=== PATIENT | female | born 1980 | race Caucasian/White ===

== ENCOUNTER 2017-09-14 19:18 | Inpatient (IN) | payer BC ==
[2017-09-14 20:45] LABS: BHCG - Serum Negative (NEGATIVE); Pregs Control Background? CLEAR/WHITE (CLR/WHITE); Pregs Control Bar Appear? YES (CONTROL BAR)
[2017-09-14 20:51] LABS: Hemoglobin 14.9 g/dL (12.0-16.0); Manual Diff?? YES; Mean Corpuscular HGB CONC 34.4 g/dL (32.0-36.0); Mean Corpuscular Hemoglobin 31.3 pg (27.0-31.0); Mean Corpuscular Volume 90.9 fl (81.0-99.0); Mean Platelet Volume 8.7 fL (7.4-10.4); Platelet Count 148 thou/uL (130-400); RBC Distribution Width 11.5 % (11.5-14.5); Red Blood Cell (RBC) Count 4.75 mill/uL (4.20-5.40); White Blood Cell (WBC) Count 8.9 thou/uL (4.8-10.8)
[2017-09-14 20:52] LABS: Band 19 % (5-11); Lymphocytes 7 % (21-51); MDiff Complete? YES; Monocytes 5 % (0-10); Neutrophil 67 % (42-75); PLT Morphology Comment PLT clumps seen-ADEQ; Reactive Lymphocytes 2 % (0-10)
[2017-09-14 20:55] LABS: ALT (SGPT) 18 U/L (8-55); AST (SGOT) 18 U/L (5-34); Albumin 4.3 g/dL (3.5-5.0); Alkaline Phosphatase 135 U/L (40-150); Anion Gap 16 mmol/L (10-20); BUN (Urea Nitrogen) 10 mg/dL (7.0-18.7); Bilirubin, Total 0.5 mg/dL (0.2-1.2); Calc. Creatinine Clearance 0 mL/min (70-130); Calcium 9.2 mg/dL (7.8-10.44); Carbon Dioxide 21 mmol/L (22-29); Chloride 101 mmol/L (98-107); Estimated GFR-MDRD 73; Globulin 3.6 g/dL (2.4-3.5); Glucose 97 mg/dL (70-105); Protein, Total 7.9 g/dL (6.0-8.3); Sodium 135 mmol/L (136-145)
[2017-09-14 21:08] LABS: Bilirubin Moderate (Negative); Blood, Urine Large (Negative); Clarity Cloudy (Clear); Glucose, Urine (Dipstick) Negative (Negative); Leukocyte Negative (Negative); Nitrite Negative (Negative); Protein, Urine (Dipstick) 100 mg/dL (Neg-Trace)
[2017-09-14 21:09] LABS: Specific Gravity, Urine 1.035 (1.002-1.036)
[2017-09-14 21:10] LABS: RBC/HPF GREATER THAN 50-TNTC HPF (0-3)
[2017-09-14 21:11] LABS: Bacteria/HPF 3+ HPF (None Seen); Other Casts/LPF 0-3 FINELY GRAN LPF (0-3 Hyaline); Squamous Epithelial 21-50 HPF (0-3)
[2017-09-14] MEDS ORDERED: Potassium Chloride 20 MEQ TAB ONE (21:11)
[2017-09-14] MEDS ORDERED: Ondansetron HCl/PF 4 MG/2 ML Vial ONE (21:11)
[2017-09-14] MEDS ORDERED: Morphine 5 MG/ML SYRINGE ONE ×3 (21:11→23:38)
[2017-09-14] MEDS ORDERED: Meropenem 1 GM VIAL ONE (21:11)
[2017-09-14] MEDS ORDERED: Ibuprofen 200 MG TAB ONE ×2 (22:06)
--- NOTE | 2017-09-14 22:17 | RAD ---
AP VIEW CHEST WELL SUPINE AND UPRIGHT VIEWS ABDOMEN 09/14/17 HISTORY: Right upper quadrant pain. History of cirrhosis. PA radiograph of the chest as well as supine and upright views of the abdomen demonstrate the lungs t o be well aerated. No evidence of active intrathoracic disease seen. No evidence of effusions, pneumo shyam or pneumothorax seen. Two views of the abdomen demonstrate air fluid levels seen in the small bowel and colon. This is conc erning for possible bowel obstruction. Gas is seen throughout the small bowel and colon. No evidence of free intraperitoneal air seen. IMPRESSION: Gas and fluid seen in the small bowel and colon. No evidence of significant cut off of gas is seen in the colon. Gas is seen in the ascending, transverse, descending, sigmoid colon and rectum which may suggest more of an ileus rather than bowel obstruction. POS: [facility]
[2017-09-15 01:03] VITALS: BMI 33.7
[2017-09-15 01:14] LABS: Lactic Acid 1.6 mmol/L (0.5-2.2)
[2017-09-15] MEDS ORDERED: Ondansetron HCl/PF 4 MG/2 ML Vial IVP PRN ×2 (01:18→10:14)
[2017-09-15] MEDS: Sodium Chloride 0.9% 1,000 ML IV SCH ×2 (01:58→05:58)
[2017-09-15] MEDS ORDERED: Morphine 4 MG/ML VIAL SLOW IVP SCH (04:45)
[2017-09-15] MEDS ORDERED: MEROPENEM 1 GM/50 ML 1 GM in Premix Bag 1 BAG IVPB SCH (09:00)
[2017-09-15] MEDS: Morphine 4 MG/ML VIAL SLOW IVP PRN ×3 (09:19→23:54)
[2017-09-15 10:09] LABS: ALT (SGPT) 14 U/L (8-55); AST (SGOT) 17 U/L (5-34); Albumin 3.3 g/dL (3.5-5.0); Alkaline Phosphatase 113 U/L (40-150); Anion Gap 6 mmol/L (10-20); BUN (Urea Nitrogen) 5 mg/dL (7.0-18.7); Bilirubin, Total 0.4 mg/dL (0.2-1.2); CRP (Inflammatory) 9.18 mg/dL (= or < 0.5); Calc. Creatinine Clearance 140 mL/min (70-130); Calcium 7.9 mg/dL (7.8-10.44); Carbon Dioxide 24 mmol/L (22-29); Chloride 107 mmol/L (98-107); Estimated GFR-MDRD Greater than 90; Globulin 2.6 g/dL (2.4-3.5); Glucose 85 mg/dL (70-105); Lipase 10 U/L (8-78); Magnesium 1.6 mg/dL (1.6-2.6); Phosphorus 2.3 mg/dL (2.3-4.7); Potassium 3.4 mmol/L (3.5-5.1); Protein, Total 5.9 g/dL (6.0-8.3); Sodium 134 mmol/L (136-145)
[2017-09-15] MEDS ORDERED: traMADol HCl 50 MG TAB PO PRN (10:12)
[2017-09-15] MEDS ORDERED: Calcium Carbonate 500 MG ChewTAB PO PRN (10:14)
[2017-09-15] MEDS ORDERED: Milk Of Magnesia 30 ML UDCUP PO PRN (10:14)
--- NOTE | 2017-09-15 10:26 | HP ---
DATE OF ADMISSION: 09/15/2017 PRIMARY CARE PHYSICIAN: Dr. Chandler Mckenzie. CHIEF COMPLAINT: Abdominal discomfort. HISTORY OF PRESENT ILLNESS: Patient is a 37-year-old female with primary biliary cirrhosis, systemic lupus erythematosus, presented to the emergency room with above complaints. Over the last 2-3 days, patient developed gradual worsening pain over the right upper quadrant that w as different from her chronic pain. The pain was more or less constant, without any aggravating or r elieving factor. It was moderate to severe in intensity. She lost her appetite. No significant mikel sea or vomiting reported. She denies any change in her bowel habits. She normally has semi-formed s tool which were essentially unchanged. No weight loss, sick contacts reported. She had intermittent fever with diaphoresis. No chills reported. Due to worsening abdominal discomfort, she presented t o the emergency room. In the emergency room, initial vital signs showed temperature 99.3, respirations 16, pulse of 122 wit h blood pressure 113/91 with O2 saturation of 97% on room air. KUB showed air fluid levels in the sm all bowel and colon without any free intraperitoneal air. CT scan of the abdomen and pelvis noncontr ast showed mild to moderate and diffuse distention with gas per ER report. Official report pending a t this time. She received a total of 8 mg morphine, 2 liter IV fluid, ibuprofen, meropenem and oral potassium in the emergency room. PAST MEDICAL HISTORY: 1. 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 Henry, GI. 2. Systemic lupus erythematosus. 3. Polyarthralgias/myalgias. 4. Gastroesophageal reflux disease. 5. Hypothyroidism. 6. Chronic pain syndrome. 7. Pseudohypoparathyroidism 8. Osteoporosis. PAST SURGICAL HISTORY: 1. Cholecystectomy. 2. Bilateral knee surgeries. 3. Dilatation and curettage. 4. . 5. Tonsillectomy. 6. Adenoidectomy. 7. Liver biopsy in 2013. 8. ERCP by Dr. Henry in 2015. 9. EGD by Dr. Henry last year. ALLERGIES: No known drug allergies. FAMILY HISTORY: Father with hemochromatosis and Parkinson's disease. Mother with hearing loss and d iabetes. SOCIAL HISTORY: Patient continues to smoke less than half pack a day. Drinks alcohol socially, no d rug use. ALLERGIES: No known drug allergies. CURRENT HOME MEDICATIONS: Per [facility], Wellbutrin 75 mg daily, escitalopram 20 mg daily, Zofran as needed, Protonix 80 mg daily, Phenergan as needed and tramadol as needed. REVIEW OF SYSTEMS: The following complete review of systems was negative, unless otherwise mentioned in the HPI or below: Constitutional: Weight loss or gain, ability to conduct usual activities. Skin: Rash, itching. Eyes: Double vision, pain. ENT/Mouth: Nose bleeding, neck stiffness, pain, tenderness. Cardiovascular: Palpitations, dyspnea on exertion, orthopnea. Respiratory: Shortness of breath, wheezing, cough, hemoptysis, fever or night sweats. Gastrointestinal: Poor appetite, abdominal pain, heartburn, nausea, vomiting, constipation, or diarr hea. Genitourinary: Urgency, frequency, dysuria, nocturia. Musculoskeletal: Pain, swelling. Neurologic/Psychiatric: Anxiety, depression. Allergy/Immunologic: Skin rash, bleeding tendency. PHYSICAL EXAMINATION: VITAL SIGNS: As discussed above. GENERAL: A 37-year-old female in tears. Continues to have abdominal discomfort. HEENT: Head is atraumatic, normocephalic, sclerae are anicteric. Dry mucous membranes. No oral les ion. NECK: Supple, no JVD, no carotid bruit. LUNGS: Clear to auscultation bilaterally, no wheezing, rales or rhonchi. HEART: S1, S2 present. Regular rate and rhythm. No rubs or gallops. ABDOMEN: Soft and diffuse tenderness mainly over the right upper quadrant. No rebound, guarding, no costovertebral angle tenderness. Bowel sounds present, somewhat hyperactive. EXTREMITIES: No edema or calf tenderness. NEUROLOGIC: Grossly nonfocal, moves all four extremities. PSYCHIATRY: Alert, awake, oriented x3. SKIN: Warm and dry. LYMPH NODES: No palpable lymph nodes in the neck. PERIPHERAL VASCULAR: Radial pulses palpable bilaterally. MUSCULOSKELETAL: No joint swelling or tenderness. LABORATORY DATA AND IMAGING DATA: Potassium 3.0. LFTs in normal range. Lipase pending at this time . Urinalysis showed WBC 11-20 with RBC greater than 50, squamous cells with 3+ bacteria. CBC showed WBC 8.9 with 19% bandemia. Lactic acid was 3.0, sodium 135. Blood cultures are negative so far. K UB by my review as discussed above. CT scan of the abdomen and pelvis showed mild to moderately and diffusely distended with gas; with relatively small amount of fluid. IMPRESSION AND PLAN: 1. Sepsis with acute organ dysfunction of unclear etiology. 2. Abdominal discomfort of unclear etiology with ileus on the CT. 3. Hypokalemia. 4. Hypomagnesemia. 5. Suspected urinary tract infection. 6. Lactic acidosis, improved. 7. Obesity with body mass index of 33.8. 8. Normal WBC with 19% bandemia. 9. Systemic lupus erythematosus. 10. 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 11. Gastroesophageal reflux disease. 12. History of pseudohypoparathyroidism and hypothyroidism. 13. Chronic pain syndrome. 14. Dehydration. PLAN: The patient will be monitored on the medical floor. We will replace electrolytes. Continue I V fluids. Clear liquids will be started. Consult GI and General Surgery. Empiric antibiotics. Sto ol workup. Resume selected home medications. We will repeat labs including lipase today. Plan of care was discussed with the patient in detail. She stated understanding. The patient will require 2-3 days for stabilization.
[2017-09-15 10:30] LABS: #Lymphocytes 0.9 thou/uL (1.20-3.40); #Monocytes 0.5 thou/uL (0.11-0.59); #Neutrophils 4.1 thou/uL (1.40-6.50); %Basophils 0.3 % (0.0-1.0); %Eosinophils 0.4 % (0.0-10.0); %Lymphocytes 15.8 % (21.0-51.0); %Monocytes 9.7 % (0.0-10.0); %Neutrophils 73.8 % (42.0-75.0); Hemoglobin 12.4 g/dL (12.0-16.0); Mean Corpuscular HGB CONC 33.9 g/dL (32.0-36.0); Mean Corpuscular Hemoglobin 31.9 pg (27.0-31.0); Mean Corpuscular Volume 94.2 fl (81.0-99.0); Mean Platelet Volume 8.4 fL (7.4-10.4); PLT Morphology Comment Appears Decreased; Platelet Count 114 thou/uL (130-400); RBC Morphology Normal; Red Blood Cell (RBC) Count 3.88 mill/uL (4.20-5.40); White Blood Cell (WBC) Count 5.5 thou/uL (4.8-10.8)
--- NOTE | 2017-09-15 10:44 | CON ---
DATE OF CONSULTATION: 09/15/2017 HISTORY OF PRESENT ILLNESS: A 37-year-old female admitted with kidney infection associated with abdo sarah bloating and pain, mostly back pain, but also pain in her epigastric region. X-rays and CT sca n revealed findings consistent with ileus. PHYSICAL EXAMINATION: VITAL SIGNS: Her blood pressure is 102/70, her pulse is 82, respirations 16. She is afebrile. HEENT: Sclerae are anicteric. Oropharynx clear. NECK: No lymphadenopathy. CHEST: Clear. HEART: Regular rate and rhythm. ABDOMEN: Soft, distended, but she does have bowel sounds. Diffuse abdominal tenderness that is mild without guarding or rebound. Well-healed abdominal incisions. EXTREMITIES: No ischemia or edema to extremities. LABORATORY DATA: White cell count is 8, hemoglobin 14, platelet count is 148,000. She has 19 bands. Sodium 134, potassium 3.4, creatinine 0.68. Liver function tests normal. Lipase normal. Acute ab dominal series overnight on admission reveals gas in the small bowel and colon consistent with ileus. Her urine showed too numerous to count rbc's, 11-20 wbc's, 3+ bacteria, moderate bilirubin, large a mount of blood. ASSESSMENT: Ileus secondary to urinary tract infection. PLAN: Supportive care only. I agree with clear liquids. Continue antibiotics. Unlikely to need an y surgical procedure.
[2017-09-15] MEDS ORDERED: Morphine 4 MG/ML VIAL SLOW IVP PRN (11:15)
[2017-09-15] MEDS ORDERED: Promethazine 25 MG TAB PO PRN (11:16)
--- NOTE | 2017-09-15 11:39 | CT ---
PRELIMINARY REPORT/[facility]/EMERGENTY AFTER-HOURS PROCEDURE CT Abdomen and Pelvis Without Intravenous Contrast EXAM DATE/TIME: Exam ordered 09/15/2017 12:03 AM CLINICAL HISTORY: 37 years old, female; Pain; Abdominal pain; Generalized; Prior surgery; Surgery date: 6+ months; Surgery type: [place]; Patient HX: All over body pain due to lupus, increased abd distention. Hs of cir rhosis due to lupus. Hs of cholecystectomy, 2 c-sections. TECHNIQUE: Axial computed tomography images of the abdomen and pelvis without intravenous contrast. All CT scans at this facility use one or more dose reduction techniques, viz.: automated exposure control; ma/kV adjustment per patient size (including targeted exams where dose is matched to indication; i.e. head) ; or iterative reconstruction technique. Coronal reformatted images were created and reviewed. COMPARISON: No relevant prior studies available. FINDINGS: Lung bases: Unremarkable. No mass. No consolidation. ABDOMEN: Liver: Unremarkable. Gallbladder and bile ducts: Prior cholecystectomy. No ductal dilation. Pancreas: Unremarkable. No ductal dilation. Spleen: Unremarkable. No splenomegaly. Adrenals: Unremarkable. No mass. Kidneys and ureters: Unremarkable. No obstructing stones. No hydronephrosis. Stomach and bowel: The colon is mildly to moderately and diffusely distended with gas and relatively small amount of fluid. Mild gaseous distention of the nondependent portions of the bowel may contribu te to patient discomfort but is not pathologic. No bowel wall thickening or intestinal obstruction. PELVIS: Appendix: Normal appendix. Bladder: Unremarkable. No stones. Reproductive: Uterus and ovaries are unremarkable. ABDOMEN and PELVIS: Intraperitoneal space: Unremarkable. No free air. No significant fluid collection. Bones/joints: No acute fracture. No dislocation. Soft tissues: Unremarkable. Vasculature: Unremarkable. No abdominal aortic aneurysm. Lymph nodes: Unremarkable. No enlarged lymph nodes. IMPRESSION: The colon is mildly to moderately and diffusely distended with gas and a relatively small amount of f luid. Mild gaseous distention of the nondependent portions of the bowel may contribute to patient dis comfort but is not pathologic. Thank you for allowing us to participate in the care of your patient. Dictated and Authenticated by: Maurice Ly MD 09/15/2017 12:25 AM Central Time ([place] & [place]) FINAL REPORT EMERGENCY AFTER HOURS CT ABDOMEN AND PELVIS PERFORMED WITHOUT CONTRAST ENHANCEMENT: Date: 09/14/17 HISTORY: Abdominal pain. COMPARISON: 01/12/16. FINDINGS: The lung bases are clear. The liver, spleen, and pancreas regions are unremarkable. Gallbladder has been removed. Right and left adrenal glands, and right and left kidneys are normal in appearance. There is no signi ficant periaortic or mesenteric adenopathy. There is gaseous distention of the colon. No wall thicken ing is seen. There is fluid within the colon, mainly right colon, which could indicate diarrhea. No s mall bowel obstruction. CT of pelvis was performed without contrast enhancement. Follicles are seen involving the adnexa. No adenopathy, mass, or free fluid. The appendix is normal. IMPRESSION: Mild gaseous distention of the colon without signs of obstruction. This report is in agreement with the preliminary report issued by [facility]. POS: [facility]
[2017-09-15] MEDS: NS 0.9% w/ 20 MEQ KCL 1,000 ML/1,000 ML BAG IV SCH ×3 (11:47→23:55)
[2017-09-15] MEDS: cefTRIAXone\\ROCEPHIN 1 GM in Sodium Chloride 0.9% 100 ML IVPB SCH (11:47)
[2017-09-15] MEDS: metroNIDAZOLE 500 MG in Premix Bag 1 BAG IVPB SCH ×2 (15:11→20:50)
--- NOTE | 2017-09-15 19:41 | CON ---
DATE OF CONSULTATION: 09/15/2017 GI INPATIENT CONSULTATION NOTE REQUESTING PHYSICIAN: Dr. Ventura. REASON FOR CONSULTATION: Abdominal pain and cirrhosis. HISTORY OF PRESENT ILLNESS: Venessa Allan is a 37-year-old woman followed in the GI clinic by my colleague, Dr. Al Henry. She has a history of extensive liver workup in the past performed by him as well as doctors down in [place]. She has had multiple liver biopsies with eventual diagnosis of lupus hepatitis. The patient was evidently on Prograf and steroids for some time, but is not currently on any lupus specific medications or immunosuppressive therapy. She has chronic pain syndrome and some chronic right upper quadrant discomfort which has not really changed recently, but started to act up a bit more and prompted her presentation last night. Upon arrival, she began to experience more generalized abdominal cramping pain and bloating. She denies any urinary symptoms. There has been no vomiting. CT performed on evaluation demonstrated significant air throughout the colon, possibly consistent with ileus. Liver tests are normal and urinalysis came back showing signs of urinary tract infection. She is being treated with antibiotics. She tells me that over the course of today, she has started to feel a lot better. Her chronic right upper quadrant pain continues, but the more generalized abdominal pain and cramping has significantly improved. She has had about 6 bowel movements today, but passing a lot of gas and with each bowel movement, she feels a bit better. REVIEW OF SYSTEMS: Full review of systems including constitutional, head, eyes , ears, nose, throat, GI, , cardiovascular, respiratory, musculoskeletal, and neurologic systems is negative except as noted in the HPI. PAST MEDICAL HISTORY: 1. Lupus hepatitis. 2. Systemic lupus erythematosus. 3. Polyarthralgias/myalgias. 4. Gastroesophageal reflux disease. 5. Hypothyroidism. 6. Chronic pain syndrome. 7. Pseudohypoparathyroidism. 8. Osteoporosis. PAST SURGICAL HISTORY: 1. Cholecystectomy. 2. ERCP with biliary sphincterotomy and stone removal in 2015. 3. Bilateral knee surgeries. 4. Dilation and curettage. 5. . 6. Tonsillectomy. 7. Adenoidectomy. 8. Liver biopsy in 2013. 9. EGD by Dr. Henry last year. ALLERGIES: No known drug allergies. OUTPATIENT MEDICATIONS: Wellbutrin, escitalopram, Zofran, Protonix, Phenergan p.r.n., tramadol p.r.n. INPATIENT MEDICATIONS: Ceftriaxone IV, metronidazole IV, morphine p.r.n., tramadol p.r.n. SOCIAL HISTORY: The patient continues to smoke less than half pack per day. Alcohol use is social. No drug use. FAMILY HISTORY: Father with hemochromatosis and Parkinson's disease. Mother with diabetes. PHYSICAL EXAMINATION: TRIAGE VITAL SIGNS: Temperature 98.3, pulse 90, blood pressure 106/79, 99% oxygen saturation on room air. GENERAL: A 37-year-old woman lying in bed comfortably in no distress, in good spirits. SKIN: No jaundice, no rash visible or palpable. EYES: No scleral icterus. Extraocular movements intact. ENT: Mucous membranes moist, no oral lesions. LYMPH: No submandibular, supraclavicular lymphadenopathy. THYROID: Nontender to palpation. HEART: Regular rate and rhythm. LUNGS: Clear to auscultation bilaterally. ABDOMEN: Bowel sounds present, soft, some diffuse tenderness to palpation, particularly in the right upper quadrant, but no guarding, no rebound tenderness. EXTREMITIES: No peripheral edema. VESSELS: Radial pulses 2+ bilaterally. NEUROLOGICAL: Cranial nerves II-XII intact bilaterally. No focal deficits. LABORATORY STUDIES: UA shows greater than 50 rbc's, 11-20 wbc's. Sodium 134, potassium 3.4, BUN 5, creatinine 0.68. LFTs are all normal with total bilirubin 0.4, alkaline phosphatase 113, AST 17, ALT 14. CRP is elevated to 9.18, albumin is 3.3, lipase is only 10. Serum test is negative. WBC 5.5, hemoglobin 12.4, platelets 114. IMAGING STUDIES: CT of the abdomen and pelvis last night demonstrated unremarkable liver, prior cholecystectomy, no biliary dilation, normal pancreas and spleen. There is mild to moderate diffuse distention of the colon with gas and nondependent portions of the bowel, but no bowel wall thickening or obstruction. Appendix is normal. Bladder is normal. ASSESSMENT AND PLAN: 1. Ileus, appears to be resolving today. This is possibly secondary to her urinary tract infection, which is now being treated. 2. Generalized abdominal pain, secondary to ileus, improving. 3. Chronic right upper quadrant pain, stable. 4. Lupus hepatitis. This was evidently diagnosed on liver biopsy within the past few years down in [place]. Note that she is not on any specific immunosuppressive medications, but her liver tests are all normal. Liver function also appears normal with albumin of 3.3 and platelets 148 on admission. I see no evidence of liver dysfunction or failure. Her hepatitis appears to not be very active at this time. 5. Urinary tract infection. This is being treated with antibiotics. I agree with Dr. Win's assessment. The patient is already feeling quite a bit better, passing a lot of gas and having multiple bowel movements today. Ileus appears to be resolving. She is tolerating a clear liquid diet. I would continue this today, then advance her diet as tolerated tomorrow if she is still feeling better. From a GI perspective, she could be discharged tomorrow if she is able to advance her diet. DAVIS
[2017-09-16 05:37] LABS: #Basophils 0.1 thou/uL (0.0-0.2); #Lymphocytes 1.1 thou/uL (1.20-3.40); #Monocytes 0.5 thou/uL (0.11-0.59); #Neutrophils 2.6 thou/uL (1.40-6.50); %Basophils 1.3 % (0.0-1.0); %Eosinophils 0.4 % (0.0-10.0); %Lymphocytes 25.4 % (21.0-51.0); %Monocytes 11.9 % (0.0-10.0); %Neutrophils 61.1 % (42.0-75.0); Mean Corpuscular HGB CONC 35.1 g/dL (32.0-36.0); Mean Corpuscular Hemoglobin 33.3 pg (27.0-31.0); Mean Corpuscular Volume 94.8 fl (81.0-99.0); Mean Platelet Volume 8.5 fL (7.4-10.4); Platelet Count 131 thou/uL (130-400); Red Blood Cell (RBC) Count 3.89 mill/uL (4.20-5.40); White Blood Cell (WBC) Count 4.3 thou/uL (4.8-10.8)
[2017-09-16] MEDS: metroNIDAZOLE 500 MG in Premix Bag 1 BAG IVPB SCH ×2 (05:39→14:08)
[2017-09-16 06:10] LABS: ALT (SGPT) 18 U/L (8-55); AST (SGOT) 22 U/L (5-34); Albumin 3.4 g/dL (3.5-5.0); Alkaline Phosphatase 120 U/L (40-150); Anion Gap 9 mmol/L (10-20); BUN (Urea Nitrogen) Less than 4 mg/dL (7.0-18.7); Bilirubin, Total 0.5 mg/dL (0.2-1.2); CRP (Inflammatory) 11.22 mg/dL (= or < 0.5); Calc. Creatinine Clearance 142 mL/min (70-130); Calcium 7.9 mg/dL (7.8-10.44); Carbon Dioxide 21 mmol/L (22-29); Chloride 108 mmol/L (98-107); Estimated GFR-MDRD Greater than 90; Globulin 2.8 g/dL (2.4-3.5); Glucose 83 mg/dL (70-105); Magnesium 1.5 mg/dL (1.6-2.6); Phosphorus 2.8 mg/dL (2.3-4.7); Potassium 3.5 mmol/L (3.5-5.1); Protein, Total 6.2 g/dL (6.0-8.3); Sodium 134 mmol/L (136-145)
[2017-09-16] MEDS ORDERED: Magnesium Sulfate 2 GM in Sodium Chloride 0.9% 100 ML IVPB SCH (08:45)
[2017-09-16] MEDS: NS 0.9% w/ 20 MEQ KCL 1,000 ML/1,000 ML BAG IV SCH (08:58)
[2017-09-16] MEDS ORDERED: Saccharomyces boulardii 250 MG CAP PO SCH (09:00)
[2017-09-16] MEDS ORDERED: buPROPion 75 MG TAB PO SCH (09:00)
[2017-09-16] MEDS ORDERED: Escitalopram Oxalate 20 mg Tablet PO SCH (09:00)
[2017-09-16] MEDS ORDERED: Magnesium 2 GM/NS 0.9% 100 ML 2 GM in Premix Bag 1 BAG IVPB SCH (09:00)
[2017-09-16] MEDS: cefTRIAXone\\ROCEPHIN 1 GM in Sodium Chloride 0.9% 100 ML IVPB SCH (11:23)
--- NOTE | 2017-09-16 14:11 | PRG ---
DATE OF SERVICE: 09/16/2017 SUBJECTIVE: Ms. Allan feels better today. She has had a few bowel movements. Her abdominal pain is resolved. OBJECTIVE: VITAL SIGNS: She is afebrile. Vital signs are stable. ABDOMEN: Soft, nontender, and nondistended. ASSESSMENT: Abdominal pain, resolved. No obstruction, no need for surgery. PLAN: To be discharged home today. She will call my office as needed.
--- NOTE | 2017-09-16 15:57 | DIS ---
DATE OF DISCHARGE: 09/16/2017 DISCHARGE DISPOSITION: Home. FOLLOWUP: 1. Follow up with primary care physician, Dr. Chandler Mckenzie, after 1 week. 2. Follow up with Gastroenterology, Dr. Al Henry, in 2 weeks. ALLERGIES: No known drug allergies. DISCHARGE MEDICATIONS: Ciprofloxacin 250 mg twice a day for the next 4 days, Flagyl 500 mg 3 times d aily for the next 4 days. All other home medications were resumed. ALLERGIES: No known drug allergies. The patient was seen and examined on the day of discharge. Denies any new complaints. No chest pain , shortness of breath, palpitations. BRIEF HOSPITAL COURSE: Patient is a 37-year-old white female with primary biliary cirrhosis, systemi c lupus erythematosus, and GERD, who presented to the hospital with abdominal discomfort. Her workup was consistent with sepsis along with ileus on the CT. Please refer to the history and physical yousif ed 09/15/2017 for further details. The patient was admitted to the hospital with the above diagnosis . Her white cell counts were 8.9 with 19% bandemia. She was started on broad-spectrum antibiotics. The patient was evaluated by General Surgery, Dr. Win, and GI, Dr. Bauer. She spontaneously star janet having bowel movement and passing gas. Her symptoms have resolved. The patient has been cleared for discharge by General Surgery. I discussed with Dr. Bauer, who agreed with a short course of IV a ntibiotic. FINAL DIAGNOSES: 1. Sepsis with acute organ dysfunction, suspected secondary to colitis. 2. Suspected ileus. 3. Electrolyte imbalance. The patient had hypokalemia and hypomagnesemia that has been replaced. 4. Suspected urinary tract infection. Urine culture showed 10,000-25,000 mixed skin jose carlos. 5. Lactic acidosis, resolved. 6. Systemic lupus erythematosus. 7. Lupus, hepatitis versus primary biliary cirrhosis. 8. Gastroesophageal reflux disease. 9. Chronic pain syndrome. 10. Dehydration. 11. History of pseudohypoparathyroidism. 12. Hypoparathyroidism, currently on no levothyroxine. 13. Hyponatremia. Plan of care was discussed with the patient in detail. She stated understanding.
[2017-09-16 16:00] VITALS: BP 112/81; TEMP 97.5
== END 2017-09-16 15:46 | disposition home or self-care (01) | DRG 872 ==
LOC: SCSER 19:18 → T4-B 09-15 00:19
PROVIDERS: ADMIT Family Medicine; ATTEND Family Medicine
DX: A41.9 Sepsis, unspecified organism (principal); K56.7 Ileus, unspecified; N39.0 Urinary tract infection, site not specified; E87.2 Acidosis; E87.1 Hypo-osmolality and hyponatremia; R65.20 Severe sepsis without septic shock; E87.6 Hypokalemia; E83.42 Hypomagnesemia; E66.9 Obesity, unspecified; Z68.33 Body mass index [BMI] 33.0-33.9, adult; K21.9 Gastro-esophageal reflux disease without esophagitis; E03.9 Hypothyroidism, unspecified; G89.4 Chronic pain syndrome; E86.0 Dehydration; K74.3 Primary biliary cirrhosis; K52.9 Noninfective gastroenteritis and colitis, unspecified; K75.4 Autoimmune hepatitis; Z79.899 Other long term (current) drug therapy
CPT/HCPCS: 36415; 74022; 74176; 80053; 81003; 81015; 83605; 83690; 83735; 84100; 84703; 85025; 86140; 87040; 87086; J2270; A4216; J0696; J2185; J2405; J3475; J7050

== ENCOUNTER 2018-02-05 10:50 | Outpatient (CLI) | payer BC ==
[2018-02-05 11:27] LABS: #Basophils 0.1 thou/uL (0.0-0.2); #Eosinphils 0.2 thou/uL (0.0-0.7); #Lymphocytes 1.9 thou/uL (1.20-3.40); #Monocytes 0.4 thou/uL (0.11-0.59); %Basophils 1.2 % (0.0-1.0); %Eosinophils 4.2 % (0.0-10.0); %Lymphocytes 41.7 % (21.0-51.0); %Monocytes 8.7 % (0.0-10.0); %Neutrophils 44.2 % (42.0-75.0); Hemoglobin 13.3 g/dL (12.0-16.0); Mean Corpuscular HGB CONC 31.7 g/dL (32.0-36.0); Mean Corpuscular Hemoglobin 29.4 pg (27.0-31.0); Mean Corpuscular Volume 92.7 fL (78.0-98.0); Platelet Count 160 thou/uL (130-400); RBC Distribution Width 12.4 % (11.5-14.5); Red Blood Cell (RBC) Count 4.52 mill/uL (4.20-5.40); White Blood Cell (WBC) Count 4.6 thou/uL (4.8-10.8)
[2018-02-05 11:50] LABS: ALT (SGPT) 17 U/L (8-55); AST (SGOT) 21 U/L (5-34); Albumin 3.9 g/dL (3.5-5.0); Alkaline Phosphatase 172 U/L (40-150); Anion Gap 11 mmol/L (10-20); BUN (Urea Nitrogen) 8 mg/dL (7.0-18.7); Bilirubin, Total 0.6 mg/dL (0.2-1.2); CRP (Inflammatory) Less than 0.50 mg/dL (= or < 0.5); Calc. Creatinine Clearance 0 mL/min (70-130); Calcium 7.8 mg/dL (7.8-10.44); Carbon Dioxide 27 mmol/L (22-29); Chloride 104 mmol/L (98-107); Estimated GFR-MDRD 88; Globulin 2.8 g/dL (2.4-3.5); Glucose 80 mg/dL (70-105); Magnesium 1.9 mg/dL (1.6-2.6); Potassium 3.8 mmol/L (3.5-5.1); Protein, Total 6.7 g/dL (6.0-8.3); Sodium 138 mmol/L (136-145)
--- NOTE | 2018-02-05 12:05 | RAD ---
ABDOMEN TWO VIEWS: History: 37-year-old female with history of lupus erythematosus, nausea, and vomiting for two weeks. FINDINGS: Surgical clips in the right upper quadrant evidence for prior cholecystectomy. No evidence for small bowel obstruction. Gas and fecal material in the colon. No overt calculus. IMPRESSION: Unremarkable abdomen two views. POS: [facility]
[2018-02-05 14:32] LABS: Microalbumin Urine Less than 1.0 mg/dL (0.5-50.0)
== END 2018-02-05 10:51 | disposition home or self-care (01) ==
LOC: SCSRAD 10:50
PROVIDERS: ATTEND Family Medicine
DX: G62.9 Polyneuropathy, unspecified (principal); K73.8 Other chronic hepatitis, not elsewhere classified; R31.29 Other microscopic hematuria; R11.2 Nausea with vomiting, unspecified
CPT/HCPCS: 36415; 74019; 80053; 82043; 82607; 83735; 84443; 85025; 85652; 86140

== ENCOUNTER 2018-05-06 07:55 | Outpatient (CLI) | payer BC ==
--- NOTE | 2018-05-06 14:16 | NM ---
NUCLEAR MEDICINE GASTRIC AMPTYING EXAM: INDICATION: Nausea with vomiting, unspecified. RADIOPHARMACEUTICAL: 2.2 mCi Technetium 99m sulfur colloid within protein-based meal. FINDINGS: Utilizing geometric mean, gastric emptying half-time is approximately 38 minutes. Gastric emptying t david is recorded as 127 minutes. IMPRESSION: Gastric emptying half-time of 38 minutes. POS: [facility]
== END 2018-05-06 07:56 | disposition home or self-care (01) ==
LOC: NM 07:55
PROVIDERS: ATTEND Family Medicine
DX: R11.2 Nausea with vomiting, unspecified (principal)
CPT/HCPCS: 78264; A9541

== ENCOUNTER 2018-06-14 18:54 | Observation (INO) | payer BC ==
[2018-06-14 19:36] LABS: #Basophils 0.1 thou/uL (0.0-0.2); #Eosinphils 0.1 thou/uL (0.0-0.7); #Lymphocytes 3.3 thou/uL (1.20-3.40); #Monocytes 0.5 thou/uL (0.11-0.59); #Neutrophils 4.9 thou/uL (1.40-6.50); %Eosinophils 1.3 % (0.0-10.0); %Lymphocytes 36.8 % (21.0-51.0); %Neutrophils 54.9 % (42.0-75.0); Hemoglobin 14.4 g/dL (12.0-16.0); Mean Corpuscular HGB CONC 35.2 g/dL (32.0-36.0); Mean Platelet Volume 9.5 fL (7.4-10.4); Platelet Count 180 thou/uL (130-400); RBC Distribution Width 12.2 % (11.5-14.5); Red Blood Cell (RBC) Count 4.49 mill/uL (4.20-5.40)
[2018-06-14 19:43] LABS: INR-International Normal Ratio 1.1; PTT 26.4 SEC (22.9-36.1); Prothrombin Time 14.1 SEC (12.0-14.7)
[2018-06-14 19:50] LABS: ALT (SGPT) 14 U/L (8-55); AST (SGOT) 15 U/L (5-34); Acetaminophen Less than 6.0 mcg/mL (10.0-30.0); Albumin 4.1 g/dL (3.5-5.0); Alcohol Less than 10 mg/dL (Less than 10); Alkaline Phosphatase 211 U/L (40-150); Anion Gap 14 mmol/L (10-20); BUN (Urea Nitrogen) 10 mg/dL (7.0-18.7); Bilirubin, Total 0.5 mg/dL (0.2-1.2); CK (CPK) 171 U/L (29-168); Calc. Creatinine Clearance 0 mL/min (70-130); Calcium 6.9 mg/dL (7.8-10.44); Carbon Dioxide 25 mmol/L (22-29); Chloride 103 mmol/L (98-107); Estimated GFR-MDRD 89; Globulin 2.6 g/dL (2.4-3.5); Glucose 85 mg/dL (70-105); Protein, Total 6.7 g/dL (6.0-8.3); Salicylate Less than 8.0 mg/dL (15.0-30.0); Sodium 139 mmol/L (136-145)
--- NOTE | 2018-06-14 19:53 | RAD ---
CHEST ONE VIEW: 06/14/18 at 7:22 p.m. HISTORY: Left sided weakness, facial tingling, cough. FINDINGS: The heart size is normal. The lungs are expanded with focal areas of consolidation, pneumothorax or p leural effusions. IMPRESSION: No radiographic evidence of acute cardiopulmonary process. POS: [facility]
[2018-06-14] MEDS ORDERED: Aspirin 325 MG TAB ONE (20:08)
--- NOTE | 2018-06-14 20:12 | CT ---
CT BRAIN WITHOUT CONTRAST: 06/14/18 HISTORY: Left sided weakness and facial tingling for two days. No evidence of infarct, hemorrhage, midline shift or abnormal extra-axial fluid collections are seen. The ventricular size is normal and the basilar cisterns patent. The bony calvarium is intact. The vi sualized paranasal sinuses and mastoid air cells are well aerated. There is suggestion of cerumen in the external auditory canals bilaterally. IMPRESSION: No CT evidence of acute intracranial process. POS: [facility]
[2018-06-14 21:36] VITALS: BMI 31.6
[2018-06-14 22:04] LABS: Troponin I Less than 0.010 ng/mL (< 0.028)
[2018-06-15 02:58] LABS: Troponin I Less than 0.010 ng/mL (< 0.028)
[2018-06-15] MEDS ORDERED: Senokot S 8.6-50 MG TAB PO PRN (07:29)
[2018-06-15] MEDS ORDERED: Ondansetron PF 4 MG/2 ML Vial IVP PRN (07:29)
[2018-06-15] MEDS ORDERED: Bisacodyl 10 MG SUPP PR PRN (07:29)
[2018-06-15] MEDS ORDERED: Bisacodyl 5 MG TAB PO PRN (07:29)
[2018-06-15] MEDS ORDERED: Calcium Carbonate 500 MG ChewTAB PO PRN (07:29)
[2018-06-15] MEDS ORDERED: Acetaminophen 325 MG TAB PO PRN (07:29)
[2018-06-15] MEDS ORDERED: Aspirin 81 mg Enteric Coated Tablet PO SCH (09:00)
[2018-06-15] MEDS ORDERED: Famotidine/PF 20 mg/2ml Vial SLOW IVP SCH (09:00)
[2018-06-15] MEDS ORDERED: Calcium Gluc 4.6 MEQ/10 ML (100 MG/ML) SLOW IVP ONE (10:00)
[2018-06-15] MEDS ORDERED: Potassium Chloride 20 MEQ TAB PO SCH (10:00)
--- NOTE | 2018-06-15 13:31 | MRI ---
BRAIN MRI NONCONTRAST: Date: 06/15/18 COMPARISON: Head CT previous day. CLINICAL HISTORY: TIA with left-sided weakness. FINDINGS: There is no evidence of acute territorial infarction, intracranial mass effect, midline shift, or sig nificant parenchymal signal abnormality throughout the brain. The visualized skull base flow-voids ar e patent. There is mild scattered paranasal sinus mucosal thickening and there is mild bilateral mast oid fluid. IMPRESSION: 1. There are no acute intracranial abnormalities. 2. Paranasal sinus mucosal thickening and mild bilateral mastoid fluid. Correlate clinically. POS: [facility]
--- NOTE | 2018-06-15 14:20 | ULT ---
CAROTID ULTRASOUND WITH BUTT SCALE AND DOPPLER DUPLEX COLOR FLOW IMAGING SPECTRAL ANALYSIS PERFORMED: DATE: 06/15/18 CLINICAL INDICATION: TIA. 38-year-old female. Left side weakness. Facial tingling. FINDINGS: There is no significant atherosclerotic calcification of the carotid arteries. PEAK SYSTOLIC VELOCITY (CM/S): Right CCA 86 Left CCA 94 Right ICA 82 Left ICA 85 There is antegrade flow within the visualized bilateral vertebral arteries. IMPRESSION: 1. No hemodynamically significant stenosis of the right internal carotid artery. 2. No hemodynamically significant stenosis of the left internal carotid artery. POS: [facility]
--- NOTE | 2018-06-15 15:40 | CON ---
DATE OF CONSULTATION: 06/15/2018 CONSULTING PHYSICIAN: Hospitalist Services. IMPRESSION: Atypical paresthesias, likely related to psychosomatic issues. PLAN: MRI of the brain. HISTORY OF PRESENT ILLNESS: Ms. Allan is a 38-year-old white female with a reported history of hypothyroidism, depression, reflux, lupus, cirrhosis, who came in with complaints of variable tingling that is involving the infrascapular region of her back, which radiates up into the neck and over both sides of her face. The tingling episodes are not associated with any slurred speech, headache, nausea, vomiting, vertigo, difficulty swallowing, or difficulty walking. She felt like her left arm might be a bit weaker than normal. This has been going on for the last two days. She had a CT scan of the brain done, which was normal. Laboratory studies were unremarkable. Her vital signs have been stable and she is afebrile. She otherwise denies any ongoing stress issues. PAST MEDICAL HISTORY: As listed above. ALLERGIES: NONE. MEDICATION LIST: 1. Levothyroxine. 2. Wellbutrin. 3. Phenergan. 4. Pantoprazole. 5. Tramadol. SOCIAL HISTORY: No drug use. FAMILY HISTORY: Unremarkable. REVIEW OF SYSTEMS: Ten system review of systems is otherwise negative. PHYSICAL EXAMINATION: GENERAL: She is a somewhat overweight middle-aged woman, in no acute distress. VITAL SIGNS: Stable. She is afebrile. HEENT: Pupils equal and reactive. Conjunctivae clear. Oropharynx clear. Cranium, normocephalic and atraumatic. NECK: Supple. No lymphadenopathy. SKIN: Clear. EXTREMITIES: No cyanosis, clubbing, or edema. NEUROLOGIC: She is alert and cooperative. Her speech is fluent and clear. Cranial nerves are intact. Motor exam showed symmetric strength without fix or drift. She could stand and pace independently. Sensation in the extremities was subjectively equal. No tremor or dysmetria was present. IMAGING DATA: CT images were reviewed. EKG shows a sinus rhythm. SUMMARY: A 38-year-old woman with a very atypical pattern of tingling, which does not really make any anatomic sense is possible, it could be multiple sclerosis, which can produce a fairly unusual patterns of numbness and tingling. Otherwise, I suspect that it is most likely psychogenic. Job ID: [id number]
[2018-06-15 16:03] VITALS: BP 101/65; TEMP 98.5
[2018-06-15 17:24] LABS: Folate (Folic Acid) 12.2 ng/mL (7.0-31.4)
[2018-06-15] MEDS ORDERED: Atorvastatin Calcium 10 MG TAB PO SCH (21:00)
[2018-06-16] MEDS ORDERED: Calcitriol 0.25 MCG CAP PO SCH (09:00)
--- NOTE | 2018-06-16 13:37 | PDOC.EVN ---
Event Note - Event Note Event Note: H&P dictated .#[id number]
--- NOTE | 2018-06-16 15:44 | DIS ---
DATE OF ADMISSION: 06/14/2018 DATE OF DISCHARGE: 06/15/2018 CONDITION AT THE TIME OF DISCHARGE: Stable and improved. DISCHARGE DISPOSITION: Home. PRIMARY CARE PHYSICIAN: Dr. Chandler Mckenzie. DISCHARGE DIAGNOSIS: Paresthesias, likely secondary to hypocalcemia. SECONDARY DISCHARGE DIAGNOSES: 1. Pseudohypoparathyroidism. 2. History of systemic lupus erythematosus. 3. Hypothyroidism. 4. B12 deficiency. 5. Chronic pain syndrome. DISCHARGE MEDICATIONS: Discharge medications remain the same as admission medication. Please see admission H and P for details. New medication, calcitriol 0.5 mcg daily. IN-HOUSE CONSULTATION: Neurology, Dr. Connors. PROCEDURES DONE IN THE HOSPITAL: 1. CT scan of the brain upon presentation to the emergency room, which is negative for any evidence of acute intracranial process. 2. MRI of the brain, which does not show any evidence of acute CVA, masses, or anything other acute. 3. Carotid Doppler ultrasound, which is negative for any evidence of stenosis or obstruction. 4. Transthoracic echocardiogram. Results are pending at this time. HISTORY OF PRESENTING ILLNESS: Ms. Allan is a 38-year-old female with past medical history of hypothyroidism, pseudohypoparathyroidism, and SLE: Who presented to the emergency room with complaints of paresthesias and left-sided weakness. She was admitted for a stroke workup. Please see admission history and physical for further details. H and P dictation number is [id number]. HOSPITAL COURSE: The patient underwent a stroke workup and it was essentially unremarkable. Her echocardiogram was pending. Dr. Connors saw the patient and he had no new recommendations. The patient was found to have hypocalcemia and gave history of hypocalcemia since she was a child. She also has history of parathyroid hormone being abnormal, so the parathyroid hormone level was checked. It came back elevated to over 2000. Her B12, folic acid, and TSH levels were also checked and were unremarkable. Her potassium was replaced. It was thought that because of the secondary hypoparathyroidism, her body is not able to recognize her own parathyroid due to receptor blunting and this resulted in hypocalcemia and then resultant worsening parathyroid hormone secretion. She was started on calcitriol. She was instructed to follow up with her primary care physician with Endocrine referral. Parathyroid scan was ordered for the patient, but the patient declined it at this time. She requested to be released from the hospital and get it done in the outpatient setting through her primary care physician. The patient said that she has a daughter who has seizures and the daughter cannot be left alone at night. As the patient was stable, decision was made to discharge her on calcitriol. The patient is seemingly a reliable patient and she is agreeable to follow up closely with her primary care physician and her compensation vice president. Currently, she is not on any treatment for her SLE. She was seen and examined prior to discharge. PHYSICAL EXAMINATION: VITAL SIGNS: Prior to discharge; temperature 98.5, heart rate 55, respirations 18, saturating 97% on room air, and blood pressure 101/65. GENERAL: No acute distress. PENDING LABS: Vitamin D2 and D3 levels are pending at this time. Job ID: [id number]
--- NOTE | 2018-06-17 08:22 | HP ---
PRIMARY CARE PHYSICIAN: Chandler Mckenzie MD. PRIMARY RN CLINICAL RESOURCE: Al Henry MD. PRIMARY FOUNDER & CEO: Darion Hoyt MD. CHIEF COMPLAINT: Paresthesias of back and left-sided weakness. HISTORY OF PRESENTING ILLNESS: Ms. Allan is a very pleasant 38-year-old female with significant past medical history of SLE with SLE hepatitis, and pseudohypoparathyroidism as well as hypothyroidism, who presented to the ER with above-mentioned complaints. History was mainly obtained by the patient herself and electronic medical records are reviewed. She was last admitted to our facility in August 2017, at which time, she was treated for ileus and likely colitis. Ms. Allan reports that for the last three days, she has sudden onset of paresthesias and heaviness and tightness involving her lower and upper back. She later started to feel numbness and tingling extending to her left side and yesterday, her left arm and left leg felt very heavy and weak. She was able to use them, but she would get tired easily and eventually she would not use them at all because of weakness. The numbness involves her face as well. She denies any trouble with her speech or any swallowing problems. She denies any incontinence of stool or urine. She denies any recent illnesses. No fever or chills. She has no headache, nausea, vomiting, or vision changes. Upon presentation to the emergency room, she was hemodynamically stable with a blood pressure of 117/86, pulse of 75, saturating 99% on room air, and afebrile. Her initial workup included a CT scan of the brain, which was negative for any acute abnormality. Her EKG was unremarkable and the chest x-ray was also normal. She received aspirin in the emergency room. She was found to have a potassium low at 3.0 and underwent substitution orally. She is now being admitted for further workup for left-sided weakness and paresthesias. The patient gives a detailed history of B12 deficiency requiring daily intramuscular injections that she self administers. She reports that she is somewhat lax in giving herself the medication on a daily basis and sometimes forgets the injections. She also has history of low calcium and was told that she needs to be on calcium to survive, but one of the doctors took her off it two years ago. She does not recall the reason why. She also has history of hypothyroidism and is currently on levothyroxine and is compliant with that. With regard to her history of lupus hepatitis, she used to follow up with a liver specialist in [place] and is recently being referred to a supervisor yard locally by her PCP, but she still has not seen them yet. She reports that she has been on treatment for lupus when she was diagnosed multiple years ago, but that messed up with her liver numbers, so she was taken off it and currently her primary care physician is monitoring her without any specific treatment. PAST MEDICAL HISTORY: 1. Systemic lupus erythematosus. 2. Systemic lupus erythematosus hepatitis presumed. 3. History of polyarthralgias and myalgias. 4. Gastroesophageal reflux disease. 5. Hypothyroidism. 6. Chronic pain syndrome. 7. Pseudohypoparathyroidism. 8. Osteoporosis. PAST SURGICAL HISTORY: 1. Cholecystectomy. 2. Bilateral knee surgery. 3. D and C. 4. . 5. Tonsillectomy. 6. Adenoidectomy. 7. Liver biopsy, 2013. 8. Endoscopic retrograde cholangiopancreatography, 2015. 9. Esophagogastroduodenoscopy, 2016. ALLERGIES: NO KNOWN MEDICATION ALLERGIES. FAMILY HISTORY: Significant for father with hemochromatosis and Parkinson disease. Mother has hearing loss and diabetes. She reports stroke in her father as well. SOCIAL HISTORY: She smokes less than half pack a day. No alcohol or drug abuse. CURRENT HOME MEDICATIONS: As follows, 1. Wellbutrin 75 mg daily. 2. Tramadol p.r.n. 3. Promethazine p.r.n. 4. Zofran p.r.n. REVIEW OF SYSTEMS: A 12-point review of system is done, it is negative except for those mentioned in the history and physical. LABORATORY DATA: CBC is unremarkable. Coagulation studies unremarkable. Serum chemistry showed potassium of 3.0. Phosphorus and magnesium are within normal limits. Calcium is low at 6.9. Alkaline phosphatase high at 211. Creatine kinase 171. Serial cardiac enzymes less than 0.010 x3. Her serum salicylate, acetaminophen, and alcohol levels are unremarkable and within normal range. CT scan of the brain done in the emergency room by my review is negative for any evidence of acute intracranial process. Chest x-ray by my review shows no evidence of pleural effusion, edema, or infiltrate. A 12-lead EKG by my review shows normal sinus rhythm without any acute ST or T-wave changes. Heart rate 65 beats per minute. PHYSICAL EXAMINATION: VITAL SIGNS: Most recent vital signs; temperature 98.1, heart rate 60, respirations are 16, temperature 99% on room air, and blood pressure 102/70. GENERAL: No acute distress. Awake, alert, and oriented x3. Lying comfortably in bed. HEENT: Mucous membrane is moist and pink. No oropharyngeal exudate or erythema. Head is normocephalic and atraumatic. Pupils are equal and reactive to light and accommodation. Extraocular movement intact. NECK: Supple without any lymphadenopathy, JVD, or bruit. CHEST: Clear to auscultation without any wheezing, rales, or rhonchi. HEART: Rate and rhythm are regular without any murmurs, rubs, or gallops. ABDOMEN: Soft, nontender, and nondistended with positive bowel sounds. EXTREMITIES: Free of any cyanosis, clubbing, or edema. NEUROLOGIC: She has definitive left-sided weakness, especially involving her hand operations team leader and difficulty lifting the arm and left leg up against gravity and against resistance. No cranial nerve deficits found. No slurred speech. No facial droop. PSYCHIATRIC: Normal affect. IMPRESSION AND PLAN: 1. Left-sided weakness. The patient's examination is quite concerning for cerebrovascular accident. We will admit her to stroke floor and start the stroke workup and consult Neurology and Stroke Team. We will obtain an MRI of the brain as well as carotid Doppler and transthoracic echocardiogram. We will start her on low-dose aspirin and check lipid panel as well. Start her on low-dose statin as well. Allow for permissive hypertension. 2. Paresthesias. The patient has history of hypoparathyroidism and hypocalcemia with tetany in the past. She also has history of B12 deficiency and hypothyroidism. I have believed that her paresthesias can be secondary to hypocalcemia or B12 deficiency versus neuropathy from systemic lupus erythematosus. We will check the calcium levels, supplement potassium, and check thyroid hormone level as well as parathyroid hormone level. Check B12 level and supplement as necessary. 3. Hypocalcemia. We will give her one dose of IV calcium gluconate and restart her on calcitriol. She will follow up with a sample checker with this regards. 4. History of systemic lupus erythematosus with lupus hepatitis. Her liver functions are stable. She is encouraged to follow up with supervisor yard and discuss the treatment options. I am not sure what is the progression of her disease. She has an upcoming appointment with the supervisor yard. 5. Hypokalemia. We will replace and recheck. 6. History of hypothyroidism. Check TSH and restart home medications. It has not been updated yet. 7. History of pseudohypoparathyroidism. I am not sure what prompted this diagnosis, but she definitively has hypocalcemia. We will check parathyroid hormone level and she will continue to follow up with the primary care physician with regard to this until it is grossly abnormal. 8. Deep venous thrombosis and gastrointestinal prophylaxis. We will avoid therapeutic Lovenox given her cirrhosis and potential for easy bleeding. We will use SCDs. 9. Add p.r.n. medications. DISPOSITION: Ms. Allan is currently being admitted under observation status for workup and rule out CVA and paresthesias. Estimated length of stay at this time is less than 2 to 3 midnights. Further management will depend upon her clinical course. Job ID: [id number]
== END 2018-06-15 17:25 | disposition home or self-care (01) ==
LOC: SCSER 18:54 → 2SE 20:00
PROVIDERS: ADMIT Hospitalist; ATTEND Hospitalist
DX: R20.2 Paresthesia of skin (principal); E20.1 Pseudohypoparathyroidism; E03.9 Hypothyroidism, unspecified; E53.8 Deficiency of other specified B group vitamins; G89.4 Chronic pain syndrome; M32.9 Systemic lupus erythematosus, unspecified; K75.4 Autoimmune hepatitis; K21.9 Gastro-esophageal reflux disease without esophagitis; F41.9 Anxiety disorder, unspecified; M81.0 Age-related osteoporosis without current pathological fracture; Z90.49 Acquired absence of other specified parts of digestive tract; Z90.89 Acquired absence of other organs; Z79.899 Other long term (current) drug therapy; Z98.890 Other specified postprocedural states
CPT/HCPCS: 36415; 70450; 70551; 71045; 80053; 80307; 82306; 82550; 82607; 82746; 83735; 83970; 84100; 84443; 84484; 85025; 85610; 85730; 93005; 93306; 93880; 96374; 96375; G0378; S0028

== ENCOUNTER 2018-07-02 10:15 | Outpatient (CLI) | payer BC ==
--- NOTE | 2018-07-02 15:51 | NM ---
NUCLEAR MEDICINE PARATHYROID SPECT AND SCINTIGRAPHY WITH CT: DATE: 07/02/2018. HISTORY: A 38-year-old female with E20.1, pseudohypoparathyroidism. Very high serum PTH but low serum c alcium. TECHNIQUE: 24.8 mCi of Technetium 99m-sestamibi injected IV. Planar scintigraphy obtained in anterior, HERNANDEZ, and FRISIAN views of the neck, head, and upper chest; obta ined immediately, at 1 hour, and at [address] of neck performed. SPECT-CT fusion images evaluated. FINDINGS: There is persistent activity throughout the left and right lobes of the thyroid gland on the 2-hour d elayed images, which decreases the sensitivity for the detection of parathyroid adenoma. No definite parathyroid adenoma is identified, either in the region of the thyroid gland or ectopically in the u pper mediastinum or elsewhere. Incidentally, there is asymmetrically significantly decreased uptake in the right submandibular gland compared to the left. Uptake in the bilateral parotid glands is sym metrically normal. IMPRESSION: 1. No parathyroid adenoma identified. 2. asymmetrically significantly decreased uptake in the right submandibular gland compared to the lef t. POS: [facility]
== END 2018-07-02 10:16 | disposition home or self-care (01) ==
LOC: NM 10:15
PROVIDERS: ATTEND Family Medicine
DX: E20.1 Pseudohypoparathyroidism (principal); R94.6 Abnormal results of thyroid function studies
CPT/HCPCS: 78072; A9500

== ENCOUNTER 2019-03-19 13:42 | Outpatient (CLI) | payer OTHER ==
[~2019-03-19 13:42] MED LIST: Iopamidol 370 76% 100 ML VIAL ONE
--- NOTE | 2019-03-19 16:03 | CT ---
CT ABDOMEN AND PELVIS WITH AND WITHOUT IV CONTRAST: 03/19/19 HISTORY: Microhematuria. FINDINGS: The lung bases are clear. The patient is post cholecystectomy with air in the intra and extrahepatic biliary tracts. The liver is otherwise unremarkable. The spleen, pancreas, and adrenal glands are nor mal. No free air or lymphadenopathy is seen in the abdomen or pelvis. There is a tiny amount of free fluid seen in the pelvis. No calculi is seen in the kidneys, ureters or the urinary bladder. No hydroureteronephrosis is noted on either side. Postcontrast images demonstrate no renal mass. There is normal contrast excretion int o the ureters and urinary bladder. Uterus and ovaries are present. The small bowel loops are not abnormally dilated. A normal appearing appendix is seen. The abdominal aorta is of normal caliber. No osteolytic or osteoblastic lesions are seen. IMPRESSION: No CT evidence of urinary tract calculi/obstruction or renal mass. POS: OFF
== END 2019-03-19 13:43 | disposition home or self-care (01) ==
LOC: BICCT 13:42
PROVIDERS: ATTEND Family Medicine
DX: R31.29 Other microscopic hematuria (principal); R80.9 Proteinuria, unspecified
CPT/HCPCS: 74178; Q9967

== ENCOUNTER 2020-03-08 09:14 | Emergency (ER) | payer OTHER ==
[~2020-03-08 09:14] MED LIST changes: +Fentanyl 100 MCG/2 ML VIAL ONE; -Iopamidol 370 76% 100 ML VIAL ONE; +Propofol 1,000 MG/100 ML VIAL IV ONE
[2020-03-08 10:30] LABS: Bilirubin Negative (Negative); Blood, Urine 3+ (Negative); Clarity Clear (Clear); Glucose, Urine (Dipstick) Normal (Negative); Ketone, Urine Trace mg/dL (Negative); Leukocyte 75 Leu/uL (Negative); Nitrite Negative (Negative); Pregnancy Test - Urine (BHCG) Negative (Negative); Pregu Control Background? CLEAR/WHITE (CLR/WHITE); Pregu Control Bar Appear? YES (CONTROL BAR); Protein, Urine (Dipstick) 50 mg/dL (Neg-Trace); RBC/HPF 21-50 HPF (0-3); Specific Gravity 1.036 (1.002-1.036); Specific Gravity, Urine 1.036 (1.002-1.036); pH, Urine 5.5 (5.0-9.0)
[2020-03-08 10:31] LABS: Bacteria/HPF 1+ HPF (None Seen)
[2020-03-08 10:59] LABS: #Eosinphils 0.1 thou/uL (0.0-0.7); #Lymphocytes 1.4 thou/uL (1.20-3.40); #Monocytes 0.2 thou/uL (0.11-0.59); #Neutrophils 4.8 thou/uL (1.40-6.50); %Eosinophils 0.9 % (0.0-10.0); %Lymphocytes 21.6 % (21.0-51.0); %Monocytes 3.5 % (0.0-10.0); Hemoglobin 15.1 g/dL (12.0-16.0); Mean Corpuscular HGB CONC 33.6 g/dL (32.0-36.0); Mean Corpuscular Hemoglobin 33.6 pg (27.0-31.0); Mean Platelet Volume 8.9 fL (7.4-10.4); Platelet Count 180 thou/uL (130-400); RBC Distribution Width 12.2 % (11.5-14.5); Red Blood Cell (RBC) Count 4.48 mill/uL (4.20-5.40); White Blood Cell (WBC) Count 6.5 thou/uL (4.8-10.8)
[2020-03-08 11:19] LABS: ALT (SGPT) 13 U/L (8-55); AST (SGOT) 17 U/L (5-34); Alkaline Phosphatase 146 U/L (40-110); Anion Gap 12 mmol/L (10-20); BUN (Urea Nitrogen) 12 mg/dL (7.0-18.7); Bilirubin, Total 0.6 mg/dL (0.2-1.2); Calc. Creatinine Clearance 0 mL/min (70-130); Calcium 7.8 mg/dL (7.8-10.44); Carbon Dioxide 27 mmol/L (22-29); Chloride 104 mmol/L (98-107); Estimated GFR-MDRD Greater than 90; Globulin 3.3 g/dL (2.4-3.5); Glucose 90 mg/dL (70-105); Lipase 14 U/L (8-78); Potassium 3.4 mmol/L (3.5-5.1); Protein, Total 7.3 g/dL (6.0-8.3); Sodium 140 mmol/L (136-145)
== END 2020-03-08 12:00 | disposition left against medical advice (07) ==
LOC: ERS 09:14
DX: Z53.21 Procedure and treatment not carried out due to patient leaving prior to being seen by health care provider (principal)
CPT/HCPCS: 36415; 80053; 81003; 81015; 81025; 83690; 85025; J2704; J3010

== ENCOUNTER 2020-04-21 08:01 | Emergency (ER) | payer OTHER ==
[2020-04-21] MEDS ORDERED: Morphine 4 MG/ML VIAL ONE (08:49)
[2020-04-21] MEDS ORDERED: predniSONE 20 MG TAB ONE (08:49)
[2020-04-21] MEDS ORDERED: Ondansetron PF 4 MG/2 ML Vial ONE (08:49)
[2020-04-21 09:02] LABS: #Lymphocytes 1.5 thou/uL (1.20-3.40); #Monocytes 0.5 thou/uL (0.11-0.59); #Neutrophils 4.2 thou/uL (1.40-6.50); %Basophils 0.7 % (0.0-1.0); %Eosinophils 0.8 % (0.0-10.0); %Lymphocytes 23.4 % (21.0-51.0); %Monocytes 7.2 % (0.0-10.0); Hemoglobin 14.6 g/dL (12.0-16.0); Mean Corpuscular HGB CONC 33.2 g/dL (32.0-36.0); Mean Corpuscular Hemoglobin 32.6 pg (27.0-31.0); Mean Corpuscular Volume 98.1 fL (78.0-98.0); Mean Platelet Volume 8.4 fL (7.4-10.4); Platelet Count 201 thou/uL (130-400); Red Blood Cell (RBC) Count 4.48 mill/uL (4.20-5.40); White Blood Cell (WBC) Count 6.2 thou/uL (4.8-10.8)
[2020-04-21 09:06] LABS: BHCG - Serum Negative (NEGATIVE); Pregs Control Background? CLEAR/WHITE (CLR/WHITE); Pregs Control Bar Appear? YES (CONTROL BAR)
[2020-04-21 09:23] LABS: ALT (SGPT) 14 U/L (8-55); AST (SGOT) 18 U/L (5-34); Albumin 3.7 g/dL (3.5-5.0); Alkaline Phosphatase 123 U/L (40-110); Anion Gap 14 mmol/L (10-20); BUN (Urea Nitrogen) 7 mg/dL (7.0-18.7); Bilirubin, Total 0.5 mg/dL (0.2-1.2); Calc. Creatinine Clearance 0 mL/min (70-130); Calcium 6.3 mg/dL (7.8-10.44); Carbon Dioxide 26 mmol/L (22-29); Chloride 104 mmol/L (98-107); Globulin 2.8 g/dL (2.4-3.5); Glucose 105 mg/dL (70-105); Protein, Total 6.5 g/dL (6.0-8.3); Sodium 141 mmol/L (136-145)
[2020-04-21] MEDS ORDERED: Calcium Gluc 4.6 MEQ/10 ML (100 MG/ML) ONE (09:57)
[2020-04-21] MEDS ORDERED: Potassium Chloride 20 MEQ TAB ONE (10:49)
[2020-04-21] MEDS ORDERED: HYDROcodone/Acetaminophen 7.5/325 mg Tablet ONE (10:55)
[2020-04-21] MEDS ORDERED: Ketorolac Tromethamine 30 MG/ML VIAL ONE (10:55)
[2020-04-21 11:00] LABS: Bilirubin Negative (Negative); Blood, Urine 2+ (Negative); Clarity Turbid (Clear); Glucose, Urine (Dipstick) Normal (Negative); Ketone, Urine Negative (Negative); Leukocyte 250 Leu/uL (Negative); Nitrite 2+ (Negative); Protein, Urine (Dipstick) 10 mg/dL (Neg-Trace); Specific Gravity, Urine 1.018 (1.002-1.036); Squamous Epithelial 0-3 HPF (0-3); Urobilinogen Normal mg/dL (Less than 2); WBC/HPF 21-50 HPF (0-3)
[2020-04-21 11:02] LABS: Bacteria/HPF 1+ HPF (None Seen)
== END 2020-04-21 11:58 | disposition home or self-care (01) ==
LOC: ERS 08:01
DX: E83.51 Hypocalcemia (principal); M79.641 Pain in right hand; M79.642 Pain in left hand; K21.9 Gastro-esophageal reflux disease without esophagitis; E03.9 Hypothyroidism, unspecified; F17.210 Nicotine dependence, cigarettes, uncomplicated; Z79.899 Other long term (current) drug therapy
CPT/HCPCS: 80053; 81003; 81015; 84703; 85025; 85652; 96374; 96375; J1885; J2001; J2270; J2405; J7512

== ENCOUNTER 2020-04-23 10:55 | Emergency (ER) | payer OTHER ==
[2020-04-23] MEDS ORDERED: Calcium Chloride 1 GM/10 ML Abboject SYRINGE ONE (11:22)
[2020-04-23] MEDS ORDERED: Magnesium 2 GM/50 ML BAG (IN WATER) ONE (11:22)
[2020-04-23 11:44] LABS: #Basophils 0.2 thou/uL (0.0-0.2); #Eosinphils 0.1 thou/uL (0.0-0.7); #Lymphocytes 5.2 thou/uL (1.20-3.40); #Monocytes 0.8 thou/uL (0.11-0.59); #Neutrophils 5.4 thou/uL (1.40-6.50); %Basophils 1.4 % (0.0-1.0); %Lymphocytes 44.7 % (21.0-51.0); %Monocytes 6.5 % (0.0-10.0); %Neutrophils 46.4 % (42.0-75.0); Hemoglobin 16.5 g/dL (12.0-16.0); Mean Corpuscular Hemoglobin 33.2 pg (27.0-31.0); Mean Platelet Volume 8.5 fL (7.4-10.4); Platelet Count 237 thou/uL (130-400); RBC Distribution Width 12.3 % (11.5-14.5); Red Blood Cell (RBC) Count 4.99 mill/uL (4.20-5.40); White Blood Cell (WBC) Count 11.6 thou/uL (4.8-10.8)
[2020-04-23] MEDS ORDERED: Morphine 4 MG/ML VIAL ONE (11:44)
[2020-04-23 12:03] LABS: ALT (SGPT) 19 U/L (8-55); AST (SGOT) 22 U/L (5-34); Albumin 4.5 g/dL (3.5-5.0); Alkaline Phosphatase 149 U/L (40-110); Anion Gap 24 mmol/L (10-20); BUN (Urea Nitrogen) 8 mg/dL (7.0-18.7); Bilirubin, Total 0.6 mg/dL (0.2-1.2); Calc. Creatinine Clearance 0 mL/min (70-130); Calcium 6.9 mg/dL (7.8-10.44); Carbon Dioxide 21 mmol/L (22-29); Chloride 103 mmol/L (98-107); Globulin 3.6 g/dL (2.4-3.5); Glucose 89 mg/dL (70-105); Magnesium 1.7 mg/dL (1.6-2.6); Potassium 5.1 mmol/L (3.5-5.1); Protein, Total 8.1 g/dL (6.0-8.3); Sodium 143 mmol/L (136-145)
== END 2020-04-23 13:30 | disposition home or self-care (01) ==
LOC: ERS 10:55
DX: M62.838 Other muscle spasm (principal); M62.831 Muscle spasm of calf; E83.51 Hypocalcemia; K21.9 Gastro-esophageal reflux disease without esophagitis; F17.210 Nicotine dependence, cigarettes, uncomplicated; Z79.899 Other long term (current) drug therapy
CPT/HCPCS: 36415; 80053; 83735; 85025; 93005; 96365; 96366; 96375; J2270; J3475

== ENCOUNTER 2020-05-16 12:25 | Emergency (ER) | payer OTHER, SELFPAY ==
[2020-05-16 18:06] LABS: SARS-CoV-2 PCR by NAA Not Detected (NotDetected)
== END 2020-05-16 13:38 | disposition home or self-care (01) ==
LOC: ERS 12:25
DX: R51.9 Headache, unspecified (principal); K21.9 Gastro-esophageal reflux disease without esophagitis; E20.9 Hypoparathyroidism, unspecified; F17.210 Nicotine dependence, cigarettes, uncomplicated; Z20.822 Contact with and (suspected) exposure to COVID-19
CPT/HCPCS: 87635; 99283; U0003; U0005

== ENCOUNTER 2020-05-22 10:42 | Emergency (ER) | payer SELFPAY ==
[2020-05-22 11:42] LABS: Bilirubin Negative (Negative); Blood, Urine 3+ (Negative); Clarity Turbid (Clear); Glucose, Urine (Dipstick) Normal (Negative); Ketone, Urine Negative (Negative); Leukocyte 250 Leu/uL (Negative); Nitrite 2+ (Negative); Protein, Urine (Dipstick) 20 mg/dL (Neg-Trace); Specific Gravity, Urine 1.022 (1.002-1.036); WBC/HPF Greater than 50 HPF (0-3)
[2020-05-22 11:43] LABS: Pregnancy Test - Urine (BHCG) Negative (Negative); Pregu Control Background? CLEAR/WHITE (CLR/WHITE); Pregu Control Bar Appear? YES (CONTROL BAR); Specific Gravity 1.022 (1.002-1.036)
[2020-05-22 11:51] LABS: Bacteria/HPF 3+ HPF (None Seen)
[2020-05-25 21:58] LABS: Chlamydia by PCR Not Detected (NotDetected); GC by PCR Not Detected (NotDetected)
== END 2020-05-22 12:30 | disposition home or self-care (01) ==
LOC: ERS 10:42
DX: N39.0 Urinary tract infection, site not specified (principal); B96.89 Other specified bacterial agents as the cause of diseases classified elsewhere; K21.9 Gastro-esophageal reflux disease without esophagitis; F17.210 Nicotine dependence, cigarettes, uncomplicated; Z79.899 Other long term (current) drug therapy
CPT/HCPCS: 81003; 81015; 81025; 87077; 87086; 87186; 87480; 87491; 87510; 87591; 87660; 99284

== ENCOUNTER 2020-05-23 14:10 | Emergency (ER) | payer SELFPAY ==
[2020-05-23 14:55] LABS: #Basophils 0.1 thou/uL (0.0-0.2); #Eosinphils 0.1 thou/uL (0.0-0.7); #Monocytes 0.3 thou/uL (0.11-0.59); #Neutrophils 4.8 thou/uL (1.40-6.50); %Basophils 0.9 % (0.0-1.0); %Eosinophils 1.2 % (0.0-10.0); %Lymphocytes 27.1 % (21.0-51.0); %Monocytes 4.5 % (0.0-10.0); %Neutrophils 66.3 % (42.0-75.0); Hemoglobin 14.1 g/dL (12.0-16.0); Mean Corpuscular HGB CONC 32.9 g/dL (32.0-36.0); Mean Corpuscular Hemoglobin 31.8 pg (27.0-31.0); Mean Corpuscular Volume 96.8 fL (78.0-98.0); Platelet Count 400 thou/uL (130-400); RBC Distribution Width 12.3 % (11.5-14.5); Red Blood Cell (RBC) Count 4.43 mill/uL (4.20-5.40); White Blood Cell (WBC) Count 7.2 thou/uL (4.8-10.8)
[2020-05-23 15:25] LABS: ALT (SGPT) 11 U/L (8-55); AST (SGOT) 15 U/L (5-34); Albumin 3.5 g/dL (3.5-5.0); Alkaline Phosphatase 103 U/L (40-110); Anion Gap 15 mmol/L (10-20); BUN (Urea Nitrogen) 10 mg/dL (7.0-18.7); Bilirubin, Total 0.3 mg/dL (0.2-1.2); Calc. Creatinine Clearance 0 mL/min (70-130); Calcium 6.8 mg/dL (7.8-10.44); Carbon Dioxide 30 mmol/L (22-29); Chloride 100 mmol/L (98-107); Globulin 3.2 g/dL (2.4-3.5); Glucose 76 mg/dL (70-105); Magnesium 1.3 mg/dL (1.6-2.6); Potassium 3.5 mmol/L (3.5-5.1); Protein, Total 6.7 g/dL (6.0-8.3); Sodium 141 mmol/L (136-145)
[2020-05-23] MEDS ORDERED: Magnesium 2 GM/50 ML BAG (IN WATER) ONE (16:04)
[2020-05-23] MEDS ORDERED: Ketorolac Tromethamine 30 MG/ML VIAL ONE (16:04)
[2020-05-23] MEDS ORDERED: Calcium Chloride 1 GM/10 ML Abboject SYRINGE ONE (16:12)
== END 2020-05-23 17:44 | disposition home or self-care (01) ==
LOC: ERS 14:10
DX: E83.42 Hypomagnesemia (principal); K21.9 Gastro-esophageal reflux disease without esophagitis; F17.210 Nicotine dependence, cigarettes, uncomplicated
CPT/HCPCS: 36415; 80053; 83735; 84100; 85025; 93005; 96365; 96367; 96375; J1885; J3475

== ENCOUNTER 2020-05-26 06:58 | Emergency (ER) | payer SELFPAY ==
[2020-05-26 07:40] LABS: #Basophils 0.1 thou/uL (0.0-0.2); #Lymphocytes 1.5 thou/uL (1.20-3.40); #Monocytes 1.5 thou/uL (0.11-0.59); #Neutrophils 10.1 thou/uL (1.40-6.50); %Basophils 0.5 % (0.0-1.0); %Eosinophils 0.3 % (0.0-10.0); %Lymphocytes 11.1 % (21.0-51.0); %Monocytes 11.2 % (0.0-10.0); %Neutrophils 76.9 % (42.0-75.0); Mean Corpuscular HGB CONC 34.2 g/dL (32.0-36.0); Mean Corpuscular Hemoglobin 33.5 pg (27.0-31.0); Mean Platelet Volume 7.9 fL (7.4-10.4); Platelet Count 294 thou/uL (130-400); RBC Distribution Width 12.3 % (11.5-14.5); Red Blood Cell (RBC) Count 4.18 mill/uL (4.20-5.40); White Blood Cell (WBC) Count 13.1 thou/uL (4.8-10.8)
[2020-05-26 07:52] LABS: ALT (SGPT) 11 U/L (8-55); AST (SGOT) 14 U/L (5-34); Albumin 3.4 g/dL (3.5-5.0); Alkaline Phosphatase 114 U/L (40-110); Anion Gap 18 mmol/L (10-20); BUN (Urea Nitrogen) 8 mg/dL (7.0-18.7); Bilirubin, Total 0.9 mg/dL (0.2-1.2); Calc. Creatinine Clearance 0 mL/min (70-130); Calcium 6.3 mg/dL (7.8-10.44); Carbon Dioxide 29 mmol/L (22-29); Chloride 94 mmol/L (98-107); Glucose 104 mg/dL (70-105); Magnesium 1.1 mg/dL (1.6-2.6); Potassium 3.5 mmol/L (3.5-5.1); Protein, Total 6.4 g/dL (6.0-8.3); Sodium 137 mmol/L (136-145)
[2020-05-26] MEDS ORDERED: Magnesium 2 GM/50 ML BAG (IN WATER) ONE (07:53)
[2020-05-26] MEDS ORDERED: Ketorolac Tromethamine 30 MG/ML VIAL ONE (07:53)
[2020-05-26] MEDS ORDERED: Calcium Gluc 4.6 MEQ/10 ML (100 MG/ML) ONE ×2 (09:05→09:08)
== END 2020-05-26 12:01 | disposition home or self-care (01) ==
LOC: ERS 06:58
DX: E83.51 Hypocalcemia (principal); R25.2 Cramp and spasm; E83.40 Disorders of magnesium metabolism, unspecified; K21.9 Gastro-esophageal reflux disease without esophagitis; F17.210 Nicotine dependence, cigarettes, uncomplicated; Z79.899 Other long term (current) drug therapy
CPT/HCPCS: 36415; 80053; 82306; 83735; 85025; 99283; J1885; J2001; J3475

== ENCOUNTER 2022-05-11 11:39 | Outpatient (CLI) | payer OTHER | END 2022-05-11 11:40 | disposition home or self-care (01) | LOC: ULT 11:39 | PROVIDERS: ATTEND Family Medicine | DX: R10.30 Lower abdominal pain, unspecified (principal) | CPT/HCPCS: 76857 ==

== ENCOUNTER 2022-06-07 12:16 | Outpatient (CLI) | payer OTHER | END 2022-06-07 12:17 | disposition home or self-care (01) | LOC: CT 12:16 | PROVIDERS: ATTEND Family Medicine | DX: S76.212A Strain of adductor muscle, fascia and tendon of left thigh, initial encounter (principal) | CPT/HCPCS: 74176 ==

== ENCOUNTER 2022-08-12 10:56 | Emergency (ER) | payer OTHER ==
[2022-08-12 11:29] LABS: #Basophils 0.1 thou/uL (0.0-0.2); #Eosinphils 0.1 thou/uL (0.0-0.7); #Lymphocytes 1.3 thou/uL (1.20-3.40); #Monocytes 0.5 thou/uL (0.11-0.59); %Basophils 1.1 % (0.0-1.0); %Eosinophils 1.6 % (0.0-10.0); %Lymphocytes 27.1 % (21.0-51.0); %Monocytes 9.5 % (0.0-10.0); %Neutrophils 60.6 % (42.0-75.0); Mean Corpuscular Hemoglobin 35.6 pg (27.0-31.0); Mean Platelet Volume 8.9 fL (7.4-10.4); Platelet Count 182 10x3/uL (130-400); RBC Distribution Width 11.7 % (11.5-14.5); Red Blood Cell (RBC) Count 4.21 mill/uL (4.20-5.40); White Blood Cell (WBC) Count 4.9 10x3/uL (4.8-10.8)
[2022-08-12] MEDS ORDERED: Azithromycin 500 MG VIAL ONE (12:07)
[2022-08-12] MEDS ORDERED: cefTRIAXone (ROCEPHIN) 1 GM VIAL ONE (12:07)
[2022-08-12] MEDS ORDERED: Sodium Chloride 0.9% 100 ML ONE (12:07)
[2022-08-12] MEDS ORDERED: Ketorolac Tromethamine 30 MG/ML VIAL ONE (12:07)
[2022-08-12] MEDS ORDERED: Albuterol 200 PUFF INH ONE (12:09)
[2022-08-12 12:10] LABS: ALT (SGPT) 18 U/L (8-55); AST (SGOT) 22 U/L (5-34); Albumin 3.8 g/dL (3.5-5.0); Alkaline Phosphatase 66 U/L (40-110); Anion Gap 16 mmol/L (10-20); BUN (Urea Nitrogen) 10 mg/dL (7.0-18.7); Bilirubin, Total 0.7 mg/dL (0.2-1.2); CK (CPK) 231 U/L (29-168); Calc. Creatinine Clearance 0 mL/min (70-130); Calcium 8.7 mg/dL (7.8-10.44); Carbon Dioxide 18 mmol/L (22-29); Chloride 106 mmol/L (98-107); Estimated GFR 86; Globulin 3.3 g/dL (2.4-3.5); Glucose 90 mg/dL (70-105); Lipase 13 U/L (8-78); Potassium 3.3 mmol/L (3.5-5.1); Protein, Total 7.1 g/dL (6.0-8.3); Sodium 137 mmol/L (136-145)
[2022-08-12] MEDS ORDERED: Iopamidol-370 76% 500 ML MDV (1 ML CHARGE) ONE (12:33)
[2022-08-12] MEDS ORDERED: Acetaminophen 500 MG TAB ONE (13:08)
[2022-08-12] MEDS ORDERED: Nitroglycerin 2% Ointment 1 INCH/1 GM Packet ONE (13:08)
[2022-08-12 14:56] LABS: BHCG - Serum Negative (NEGATIVE); Pregs Control Background? CLEAR/WHITE (CLR/WHITE); Pregs Control Bar Appear? YES (CONTROL BAR)
== END 2022-08-12 16:17 | disposition home or self-care (01) ==
LOC: ERS 10:56
DX: R07.9 Chest pain, unspecified (principal); F17.290 Nicotine dependence, other tobacco product, uncomplicated
CPT/HCPCS: 36415; 71045; 71275; 80053; 82550; 83690; 84484; 84703; 85025; 85379; 93005; 94664; 96365; 96367; 96375; J0456; J0696; J1885; J3490; Q9967

== ENCOUNTER 2022-11-26 01:07 | Emergency (ER) | payer OTHER ==
[2022-11-26] MEDS ORDERED: Morphine 4 MG/ML VIAL ONE ×2 (01:36→08:55)
[2022-11-26] MEDS ORDERED: Ondansetron PF 4 MG/2 ML Vial ONE (01:36)
[2022-11-26] MEDS ORDERED: fentaNYL 50 mcg/mL 1 mL Vial ONE (02:11)
[2022-11-26 02:19] LABS: #Eosinphils 0.1 thou/uL (0.0-0.7); #Monocytes 0.7 thou/uL (0.11-0.59); #Neutrophils 15.4 thou/uL (1.40-6.50); %Basophils 0.2 % (0.0-1.0); %Eosinophils 0.3 % (0.0-10.0); %Lymphocytes 7.8 % (21.0-51.0); %Monocytes 3.9 % (0.0-10.0); %Neutrophils 87.2 % (42.0-75.0); Hemoglobin 14.3 g/dL (12.0-16.0); Mean Corpuscular HGB CONC 33.2 g/dL (32.0-36.0); Mean Corpuscular Volume 99.5 fl (78.0-98.0); Mean Platelet Volume 10.5 fL (7.4-10.4); Platelet Count 194 10x3/uL (130-400); RBC Distribution Width 13.2 % (11.5-14.5); Red Blood Cell (RBC) Count 4.33 mill/uL (4.20-5.40); White Blood Cell (WBC) Count 17.6 10x3/uL (4.8-10.8)
[2022-11-26 02:43] LABS: ALT (SGPT) 16 U/L (8-55); AST (SGOT) 17 U/L (5-34); Albumin 4.2 g/dL (3.5-5.0); Alkaline Phosphatase 83 U/L (40-110); Anion Gap 17 mmol/L (10-20); BUN (Urea Nitrogen) 17 mg/dL (7.0-18.7); Calc. Creatinine Clearance 0 mL/min (70-130); Calcium 8.9 mg/dL (7.8-10.44); Carbon Dioxide 25 mmol/L (22-29); Chloride 98 mmol/L (98-107); Estimated GFR 83; Globulin 2.9 g/dL (2.4-3.5); Glucose 75 mg/dL (70-105); Lipase Less than 4 U/L (8-78); Potassium 3.4 mmol/L (3.5-5.1); Protein, Total 7.1 g/dL (6.0-8.3); Sodium 137 mmol/L (136-145)
[2022-11-26 04:22] LABS: BHCG - Serum Negative (NEGATIVE); Pregs Control Background? CLEAR/WHITE (CLR/WHITE); Pregs Control Bar Appear? YES (CONTROL BAR)
[2022-11-26 04:36] LABS: Bacteria/HPF 4+ HPF (None Seen); Bilirubin Negative (Negative); Blood, Urine 3+ (Negative); CAUTI Indications for Culture Pelvic or flank pain; Clarity Turbid (Clear); Glucose, Urine (Dipstick) Normal (Negative); Ketone, Urine 40 mg/dL (Negative); Leukocyte Negative Leu/uL (Negative); Nitrite 2+ (Negative); Protein, Urine (Dipstick) 70 mg/dL (Neg-Trace); RBC/HPF Greater than 50 HPF (0-3); Specific Gravity, Urine 1.029 (1.002-1.036); Squamous Epithelial 0-3 HPF (0-3)
[2022-11-26 04:37] LABS: Urine Culture Reflex No No
[2022-11-26] MEDS ORDERED: HYDROmorphone 0.5 MG/0.5 ML SYRINGE ONE (05:04)
[2022-11-26 05:45] LABS: Lactic Acid 1.1 mmol/L (0.5-2.2)
[2022-11-26] MEDS ORDERED: cefTRIAXone (ROCEPHIN) 1 GM VIAL ONE (08:55)
[2022-11-26] MEDS ORDERED: Iopamidol-370 76% 500 ML MDV (1 ML CHARGE) ONE (11:43)
== END 2022-11-26 09:53 | disposition home or self-care (01) ==
LOC: ERS 01:07
DX: N12 Tubulo-interstitial nephritis, not specified as acute or chronic (principal); N83.201 Unspecified ovarian cyst, right side; F17.210 Nicotine dependence, cigarettes, uncomplicated
CPT/HCPCS: 36415; 74177; 76856; 80053; 81001; 83605; 83690; 84484; 84703; 85025; 93005; 96365; 96375; 96376; J0696; J1170; J2270; J2405; J3010; Q9967